=== PATIENT | female | born 1980 ===

== ENCOUNTER 2022-10-01 09:15 | Inpatient (IN) | payer OTHER ==
[~2022-10-01] VITALS: Ht 177.8 cm; Wt 97.5 kg
[2022-10-10] MEDS ORDERED: POLY119PG PO (06:49)
[2022-10-10] MEDS ORDERED: SIMETHICONE125 M1 PO (06:49)
[2022-10-10] MEDS ORDERED: IBUPROFEN800 MG PO (06:49)
[2022-10-10] MEDS ORDERED: GABAPENTIN300 MG PO (06:49)
== END 2022-10-10 11:02 | disposition home or self-care (01) | DRG 743 ==
LOC: OB/GYN 10-07 06:22 → O/R 10-07 06:22 → SURG 10-07 09:15 → OB/GYN 10-07 11:05 → SURG 10-07 12:15 → OB/GYN 10-10 11:02
PROVIDERS: ADMIT Obstetrics & Gynecology; ATTEND Obstetrics & Gynecology
PROC: 0UT70ZZ Resection of Bilateral Fallopian Tubes, Open Approach (ICD-10-PCS; 2022-10-07)
PROC: 0UT90ZZ Resection of Uterus, Open Approach (ICD-10-PCS; principal; 2022-10-07 12:15)
DX: D25.9 Leiomyoma of uterus, unspecified (principal); N72 Inflammatory disease of cervix uteri; Z20.822 Contact with and (suspected) exposure to COVID-19